=== PATIENT | female | born 1980 | race African-American/Black ===

== ENCOUNTER 2021-06-05 11:49 | Emergency (ER) | payer OTHER ==
[~2021-06-05] VITALS: Ht 167.6 cm; Wt 79.4 kg
[2021-06-05] MEDS ORDERED: KETOROLAC TROMETHAMINE 60 MG/2 ML VIAL IM ONE (12:15)
[2021-06-05] MEDS ORDERED: DIPHTH/TETANUS/ACEL. PERTUSSIS 0.5 ML SYR IM ONE (12:15)
[2021-06-05] MEDS ORDERED: TETANUS/DIPHTHERIA TOX ADULT 0.5 ML SYR ONE ×2 (12:30→12:32)
[2021-06-05] MEDS ORDERED: TETANUS/DIPHTHERIA TOX ADULT 0.5 ML SYR IM ONE (12:45)
[2021-06-05] MEDS ORDERED: IBUPROFEN600 MG PO (13:03)
== END 2021-06-05 13:08 | disposition home or self-care (01) ==
LOC: EDBD 11:49 → ER 12:06
DX: S60.031A Contusion of right middle finger without damage to nail, initial encounter (principal); W23.1XXA Caught, crushed, jammed, or pinched between stationary objects, initial encounter; Y92.89 Other specified places as the place of occurrence of the external cause; I10 Essential (primary) hypertension; Z98.84 Bariatric surgery status
CPT/HCPCS: 73140; 90471; 90714 ×2; 99283; J1885